=== PATIENT | female | born 1940 | race Caucasian/White ===

== ENCOUNTER 2023-09-17 13:00 | Outpatient (RCR) | payer MEDICARE, SELFPAY ==
--- NOTE | 2023-08-11 16:32 | HP.PTEVAL ---
Patient's Visit Information Visit Information Visit Information: AKSHAT ORTIZ is a 83 year old F referred to Physical Therapy by Dr. Eliseo Hollis MD with a diagnosis of Parkinson;s. Date of Evaluation: 08/11/23 Physical Therapist: FABRIZIO Harrell Visit Plan Frequency: 2x /Week Duration: 4 Weeks Plan: 2X/ week for 4 weeks for curb steps, gait training with head turns, dual tasking, sit to stands, posture, balance with HEP..daughter can help several times a week HEP: standing heel and toe raises and sit to stand....also walking with rollator for endurance Subjective Subjective: Her daughter was present. She had a fall and went to her PCP and he did a few things and recommended that she see Dr Hollis. He thought PD in the early stage of it. He said that exercise was the best thing and sent her to PT. He did prescribe a med Leva dopa but has not started taking it yet. She is shaky off and on on both sides. She needs a little help walking, may need a cane or grabs daughters arm. Stairs: has none at home. She would go up one foot at a time. Objective Objective: MMT: R hip flex 14.1 and L 14.1 R knee ext 28.8 and L 25.1 R knee flex 14.5 and L 14 R hip abd 19.5 and L 15.6 FGA 15 Pt tended to veer with walking with head turns Pt was able to walk with bigger steps with rollator and will use for enduranve purpose Pt is able to transfer sit to stand without UE support but with some retro LOB Pt is able to get onto mat table and roll R and L without any issue Balance/Special Test Scores Functional Gait Assessment Score: 15 % Disability: 50.0000 Lower Extremity Functional Score: 53 Goals Goal 1:: I HEP Goal Time Frame: 4-6 Weeks Goal 2:: Be able to go up and down X 6 curb steps with SBA without LOB Goal 3:: Be able to walk with vertical and horizontal head turns without LOB or veering Goal Time Frame: 4-6 Weeks Goal 4:: Be able to complete X 20 standing opp arm and legs without LOB or messing up sequence Goal Time Frame: 4-6 Weeks Goal 5:: X 10 sit to stands without retro LOB Goal Time Frame: 4-6 Weeks Rehabilitation Potential Rehabilitation Potential: Good Anticipated Interventions Patient/Client Instruction: Educate patient on: Condition and Plan of Care For the Purpose of:: To improve muscle performance and motor function, To improve ability to perform ADL's, To increase tolerance to activity/condition/position, To decrease level of supervision to perform tasks, To improve ability of physical actions for home/community/work/leisure, To improve gait and locomotor functions, To improve endurance, To improve balance and To improve safety with gait Therapeutic Exercise to Include: Strength training, Endurance training, Postural training, Flexibilty training, Gait and locomotor training, Neuromotor development, Active ROM and Dynamic Lumbar Stabilization For the Purpose of:: To improve gait and locomotor functions, To improve endurance, To improve balance and To improve safety with gait Functional Training to Include: Gait training For the Purpose of:: To improve gait and locomotor functions, To improve balance and To improve safety with gait Text: Thank you for the opportunity to evaluate your patient. For Medicare and Medicare HMO plans, please review the plan of care and approve it. It will need to be FAXED BACK to us at [phone] for Medicare purposes. For Medicare only, by signing this I certify the plan of care. Please let me know if there are questions or concerns regarding this plan of care. Physician Signature: Date:
--- NOTE | 2023-11-21 14:17 | HP.PT.NRP ---
Patient Information Patient Information: AKSHAT ORTIZ was seen in my office for initial evaluation on 08/11/23. The following Plan of Care was established for this patient: POC Established Initial Frequency: 2x /Week Initial Duration: 4 Weeks Anticipated Interventions Patient/Client Instruction: Educate patient on: Condition and Plan of Care For the Purpose of:: To improve muscle performance and motor function, To improve ability to perform ADL's, To increase tolerance to activity/condition/position, To decrease level of supervision to perform tasks, To improve ability of physical actions for home/community/work/leisure, To improve gait and locomotor functions, To improve endurance, To improve balance and To improve safety with gait Therapeutic Exercise to Include: Strength training, Endurance training, Postural training, Flexibilty training, Gait and locomotor training, Neuromotor development, Active ROM and Dynamic Lumbar Stabilization For the Purpose of:: To improve gait and locomotor functions, To improve endurance, To improve balance and To improve safety with gait Functional Training to Include: Gait training For the Purpose of:: To improve gait and locomotor functions, To improve balance and To improve safety with gait Last Seen Last Seen: This patient was last seen in our office 09/17/23. Pertinent comments regarding their Physical therapy will appear below: DC PT At this point I will be discontinuing this patient from physical therapy. I would be happy to see this patient again in the future if found appropriate by the physician. Thank you! Christal Randhawa, FABRIZIO Balance/Gait/Functional tests Balance/Special Test Scores Functional Gait Assessment Score: 15 % Disability: 50.0000 Lower Extremity Functional Score: 53
== END 2023-09-17 19:00 | disposition home or self-care (01) ==
LOC: PT 13:00
PROVIDERS: Visit Provider Psychiatry & Neurology Neurology
DX: G20.A1 Parkinson's disease without dyskinesia, without mention of fluctuations (principal)
CPT/HCPCS: 97110; 97161